=== PATIENT | male | born 1975 | race African-American/Black ===

== ENCOUNTER 2019-06-30 07:06 | Day surgery (SDC) | payer OTHER ==
[~2019-06-30] VITALS: Ht 188 cm; Wt 95.3 kg
[2019-06-30 13:27] VITALS: BP 148/79
== END 2019-06-30 12:40 | DRG 395 ==
LOC: ORM 07:06
PROVIDERS: ATTEND Surgery
PROC: 0H88XZZ Division of Buttock Skin, External Approach (ICD-10-PCS; principal; 2019-06-30)
DX: K60.3 Anal fistula (principal)
CPT/HCPCS: C9290; J1100